=== PATIENT | female | born 1930 | race Caucasian/White ===

== ENCOUNTER 2017-05-13 17:12 | Emergency (ER) | payer OTHER, MEDICARE ==
[~2017-05-13] VITALS: Ht 182.9 cm; Wt 79.8 kg
--- NOTE | ~2017-05-13 | EKG ---
[address] [address] ELECTROCARDIOGRAM REPORT Name: BOSTON BANUELOS Room #: 170-12 ADM IN M.R.#: [id number] Admission: 05/13/17 Attend Phys: Ludwig Gramajo MD Discharge: Date of : 34 Report #: [id number] THIS REPORT FOR: //name// [facility] ED Test Date: 2017-05-13 Test Time: 18:05:16 Pat Name: BOSTON BANUELOS Department: Room: 170 Gender: F Striker Off: JERRELL : 1930 Requested By: Radha Sherman Order Number: [id number] MD: Trent Ortega Measurements Intervals [place] Rate: 97 P: [place]: QRS: 36 QRSD: 84 T: 51 QT: 362 QTc: 460 Interpretive Statements Atrial fibrillation Low voltage, extremity leads Baseline wander in lead(s) V2 Compared to ECG 12/11/2014 15:52:15 T-wave abnormality no longer present Electronically Signed On 05-14-2017 8:20:20 CDT by Trent Ortega [email or web address] <ELECTRONICALLY SIGNED> By: Trent Ortega MD, [facility] 05/14/17 0820 1805 180 Trent Ortega MD, [facility] /EPI
[~2017-05-13 17:12] MED LIST: ACID CONTROL20 MG PO; ALBUTEROL2.5 MG/3 M INH; ARTHRITIS PAIN M3 O1 TOP; ASPIR 8181 MG PO; BISCOLAX10 MG RECTAL; CIPRO500 MG PO; COLACE 100 MG100 MG PO; COLACE100 MG PO; DURAGESIC1 EAC2 TD; ENOXAPARIN40 MG/0.1 SUBQ; FENTANYL PA25 MCG/HR EPIDURAL; FENTANYL PA50 MCG/HR TOP; FENTANYL PA50 MCG/HR TP; FLORANEX TABLE1 EACH PO; HYDROCODONE-AP1 EAC6 PO; LACTULOSE10 GM/15 M PO; LASIX 20 MG TAB20 MG; LASIX 40 MG TAB40 M2 PO; LEVAQUIN 500 M500 M1 PO; LEVOTHYROXIN0.125 M1 PO; LEVOTHYROXINE 0.15MG PO; LOPRESSOR25 PO; LOTRISONE CREAM15 GM TOP; MAGNESIUM OXID400 MG PO; MAGOX 400400 MG PO; METFORMIN HCL500 MG PO; MILK OF MA400 MG/5 M PO; MIRALAX17 G1 PO; MIRALAX17 GM PO; MUCINEX TA600 MG/TA2 PO; NAMENDA XR28 MG PO; NEURONTIN 300300 M1 PO; NYAMYC15 GM TOP; NYSTATIN 1100000 U/M SW&SWALLOW; ONDANSETRON HCL4 M2 PO; OXYCODONE-ACET1 EACH PO; OXYCONTIN10 M1 PO; PANTOPRAZOLE SO40 M1 PO; PAXIL10 MG PO; POTASSIUM20 PO; PREDNISONE 5 MG5 M1; PROTONIX40 M1 PO; PROVENTIL HFA6.7 G1 INH; ROBAXIN 750 MG750 M1 PO; ROXICODONE5 MG PO; TEARS NATURALE1 EACH OPHTHALMIC; TESSALON PERLE100 M1 PO; TOPROL XL25 MG PO; TYLENOL325 MG PO; VENLAFAXIN37.5 MG/1 PO; ZAROXOLYN 5MG TA5 M1 PO; ZOLOFT25 MG PO
[2017-05-13 17:14] VITALS: BP 95/51
[2017-05-13 17:56] LABS: HEMOGLOBIN 10.2 gm/dL (12.0-15.0); MCH 31.5 pg (26.0-34.0); MCV 92.7 fL (80.0-100.0); PLATELET COUNT 209 thou/uL (150-400); RBC 3.24 mil/uL (4.20-5.00); RDW 14.7 % (10.5-14.5); WBC 22.9 thou/uL (4.0-11.0)
[2017-05-13 17:57] LABS: MANUAL DIFF YES
[2017-05-13 18:05] LABS: CREATININE 1.6 mg/dL (0.6-1.0); POTASSIUM 4.6 mmol/L (3.5-5.1)
[2017-05-13 18:11] LABS: ALBUMIN 2.4 g/dL (3.4-5.0); TOTAL BILIRUBIN 0.8 mg/dL (<0.1-1.0)
[2017-05-13 18:12] LABS: INR 1.1; PROTIME 11.7 Seconds (9.3-11.4)
[2017-05-13 18:23] LABS: TOTAL CELL COUNT 100
[2017-05-13 18:24] LABS: ABSOLUTE NEUTROPHILS 19.5 thou/uL (1.4-8.2); METAMYELOCYTES 1 %
== END 2017-05-13 21:16 | disposition short-term general hospital (02) ==
LOC: ER 17:12 → EROBS 19:06 → ER 19:06 → EROBS 21:16
PROVIDERS: Nurse Practitioner Family
DX: S72.401A Unspecified fracture of lower end of right femur, initial encounter for closed fracture (principal); J18.9 Pneumonia, unspecified organism; A41.9 Sepsis, unspecified organism; I48.2 Chronic atrial fibrillation; J44.9 Chronic obstructive pulmonary disease, unspecified; E11.9 Type 2 diabetes mellitus without complications; H35.30 Unspecified macular degeneration; G89.29 Other chronic pain; M54.9 Dorsalgia, unspecified; K21.9 Gastro-esophageal reflux disease without esophagitis; F41.9 Anxiety disorder, unspecified; F10.99 Alcohol use, unspecified with unspecified alcohol-induced disorder; Z85.828 Personal history of other malignant neoplasm of skin; Z87.440 Personal history of urinary (tract) infections; Z88.1 Allergy status to other antibiotic agents; Z87.891 Personal history of nicotine dependence; Y95 Nosocomial condition; W18.30XA Fall on same level, unspecified, initial encounter; Y93.89 Activity, other specified; Y92.89 Other specified places as the place of occurrence of the external cause; Y99.8 Other external cause status

== ENCOUNTER → 2017-08-05 | Outpatient (CLI) | payer OTHER, MEDICARE ==
[~2017-08-05] MED LIST changes: +ARTIFICIAL TEAR15 M1 OPHTHALMIC; +DEMADEX20 MG PO; +DOXYCYCLINE 10100 MG PO; +OXYCODONE HCL 55 MG PO; +PEPCID20 MG PO; +SYNTHROID125 MCG PO; +SYSTANE 0.3-0.415 ML OPHTHALMIC
== END ==
LOC: HYPER 06:40
DX: S41.111A Laceration without foreign body of right upper arm, initial encounter (principal); J44.9 Chronic obstructive pulmonary disease, unspecified; K21.9 Gastro-esophageal reflux disease without esophagitis; M19.90 Unspecified osteoarthritis, unspecified site; G30.9 Alzheimer's disease, unspecified; F02.80 Dementia in other diseases classified elsewhere, unspecified severity, without behavioral disturbance, psychotic disturbance, mood disturbance, and anxiety; F41.9 Anxiety disorder, unspecified; Z87.891 Personal history of nicotine dependence; Z72.89 Other problems related to lifestyle; X58.XXXA Exposure to other specified factors, initial encounter; Y99.8 Other external cause status; Y92.89 Other specified places as the place of occurrence of the external cause; Y93.89 Activity, other specified

== ENCOUNTER → 2017-08-29 | Outpatient (CLI) | payer OTHER, MEDICARE | LOC: HYPER 06:53 | DX: S41.111D Laceration without foreign body of right upper arm, subsequent encounter (principal); F41.9 Anxiety disorder, unspecified; J44.9 Chronic obstructive pulmonary disease, unspecified; K21.9 Gastro-esophageal reflux disease without esophagitis; M19.90 Unspecified osteoarthritis, unspecified site; Z87.891 Personal history of nicotine dependence; Z72.89 Other problems related to lifestyle; X58.XXXD Exposure to other specified factors, subsequent encounter ==

== ENCOUNTER 2018-09-12 22:45 | Emergency (ER) | payer OTHER, MEDICARE ==
[~2018-09-12] VITALS: Ht 165.1 cm; Wt 99.8 kg
[~2018-09-12 22:45] MED LIST changes: +SYNTHROID125 MC1 PO; -SYNTHROID125 MCG PO
[2018-09-12] MEDS ORDERED: TYLENOL EXTRA500 MG PO (22:56)
[2018-09-12] MEDS ORDERED: ALIVE WOMEN'S1 EACH PO (22:56)
[2018-09-12] MEDS ORDERED: ACIDOPHILUS1 EAC4 PO (22:57)
[2018-09-12] MEDS ORDERED: MILK OF MA2400 MG/10 PO (22:58)
[2018-09-12] MEDS ORDERED: ARTIFICIAL TEAR15 M2 OPHTHALMIC (23:02)
[2018-09-12] MEDS ORDERED: CLARITIN10 M3 PO (23:06)
[2018-09-12 23:09] LABS: HEMOGLOBIN 13.7 gm/dL (12.0-15.0); MCV 93.3 fL (80.0-100.0); RDW 16.6 % (10.5-14.5); WBC 6.9 thou/uL (4.0-11.0)
[2018-09-12 23:11] LABS: HEMATOCRIT 41.6 % (37.0-47.0); MCH 30.8 pg (26.0-34.0); PLATELET COUNT 176 thou/uL (150-400); RBC 4.46 mil/uL (4.20-5.00)
[2018-09-12 23:17] LABS: CALCIUM 8.6 mg/dL (8.5-10.1); CREATININE 0.8 mg/dL (0.6-1.0); POTASSIUM 3.6 mmol/L (3.5-5.1)
[2018-09-12 23:22] LABS: TOTAL BILIRUBIN 0.8 mg/dL (<0.1-1.0); TOTAL PROTEIN 6.6 g/dL (6.4-8.2)
[2018-09-12 23:56] LABS: ABSOLUTE NEUTROPHILS 6.1 thou/uL (1.4-8.2)
[2018-09-12 23:57] VITALS: BP 140/83
[2018-09-12 23:57] LABS: ANISOCYTOSIS 1+; PLATELET ESTIMATE NORMAL
--- NOTE | 2018-09-14 22:08 | EKG ---
[address] [place] [address] ELECTROCARDIOGRAM REPORT Name: BOSTON BANUELOS Room #: DEP [id number] Admission: 09/12/18 Attend Phys: Discharge: 09/12/18 Date of : 34 Report #: [id number] THIS REPORT FOR: //name// [facility] ED Test Date: 2018-09-12 Test Time: 23:02:59 Pat Name: BOSTON BANUELOS Department: Room: Gender: F Senior Python Developer: [place] : 1930 Requested By: Lluvia Long Order Number: [id number] MD: Edgar Head Measurements Intervals [place] Rate: 106 P: [place]: QRS: 21 QRSD: 85 T: QT: 441 QTc: 586 Interpretive Statements Atrial fibrillation Low voltage, precordial leads RSR' in V1 or V2, probably normal variant Nonspecific T abnormalities, lateral leads Prolonged QT interval Compared to ECG 05/13/2017 18:05:16 RSR' in V1 or V2 now present T-wave abnormality now present Prolonged QT interval now present Electronically Signed On 09-14-2018 22:07:46 [employer]CIAL [employer]ENT by Edgar Head [email or web address] <ELECTRONICALLY SIGNED> By: Edgar Head MD 09/14/182206 01 01 Edgar Head MD /EPI
== END 2018-09-12 23:58 | disposition home or self-care (01) ==
LOC: ER 22:45
PROVIDERS: Student in an Organized Health Care Education/Training Program
DX: J40 Bronchitis, not specified as acute or chronic (principal); J44.9 Chronic obstructive pulmonary disease, unspecified; I48.91 Unspecified atrial fibrillation; Z96.653 Presence of artificial knee joint, bilateral; Z96.642 Presence of left artificial hip joint; E11.9 Type 2 diabetes mellitus without complications; M54.5 Low back pain; G89.29 Other chronic pain; G47.30 Sleep apnea, unspecified; K21.9 Gastro-esophageal reflux disease without esophagitis; F41.9 Anxiety disorder, unspecified; E89.0 Postprocedural hypothyroidism; Z90.49 Acquired absence of other specified parts of digestive tract; Z87.891 Personal history of nicotine dependence; Z88.1 Allergy status to other antibiotic agents; Z88.8 Allergy status to other drugs, medicaments and biological substances